=== PATIENT | male | born 1995 | race Two or more races ===

== ENCOUNTER 2020-05-17 11:04 | Emergency (ER) | payer OTHER ==
[~2020-05-17] VITALS: Ht 167.6 cm; Wt 62.8 kg
[2020-05-17 12:15] VITALS: BP 110/66
--- NOTE | 2020-05-17 12:38 | REP ---
REASON: Pain after trauma. PRIORS: None. TECHNIQUE: 4.5 mm contiguous transaxial sections were obtained from the skull base to the cerebral convexities with thin cuts through the posterior fossa without the administration of intravenous contrast. FINDINGS: The ventricles and sulci are consistent with the patient's age. There are no extra-axial fluid collections. There is no mass effect. The deep cerebral white matter is consistent with the patient's age. The orbital and petrous structures, cerebellopontine angles, and posterior fossa are unremarkable. The sella turcica, cavernous, and paracavernous structures are essentially unremarkable. The visualized portions of the paranasal sinuses and mastoid air cells are clear. Images of the skull base show no gross abnormality. IMPRESSION: Essentially unremarkable CT examination of the brain. Electronically Signed by Francis Christine DO 05/17/2020 03:56 P
== END 2020-05-17 12:19 | disposition home or self-care (01) ==
LOC: M ED 11:04
DX: S00.01XA Abrasion of scalp, initial encounter (principal); W20.8XXA Other cause of strike by thrown, projected or falling object, initial encounter; Y92.9 Unspecified place or not applicable; Y99.1 Military activity; Y93.9 Activity, unspecified